=== PATIENT | female | born 1965 | race Caucasian/White ===

== ENCOUNTER → 2025-01-01 09:43 | Outpatient (REF) | payer BC, SELFPAY | LOC: RAD 09:43 | PROVIDERS: ATTENDING PHYSICIAN Physician Assistant; FAMILY PHYSICIAN Family Medicine | DX: E05.90 Thyrotoxicosis, unspecified without thyrotoxic crisis or storm (principal) | CPT/HCPCS: 76536 ==

== ENCOUNTER → 2025-02-25 16:33 | Outpatient (REF) | payer BC, SELFPAY ==
[2025-02-25 13:50] VITALS: BP 138/90; BP_SYST 95
== END ==
LOC: RADI 16:33
PROVIDERS: ATTENDING PHYSICIAN Physician Assistant
DX: E04.1 Nontoxic single thyroid nodule (principal)
CPT/HCPCS: 88173; 10005

== ENCOUNTER 2025-05-21 06:23 | Day surgery (SDC) | payer BC, SELFPAY ==
[2025-05-21 08:21] LABS: Glucose - Point of Care 95 mg/dl (70-99)
== END 2025-05-21 10:43 | disposition home or self-care (01) ==
LOC: GI 06:23
PROVIDERS: ATTENDING PHYSICIAN Internal Medicine; FAMILY PHYSICIAN Family Medicine
DX: Z12.11 Encounter for screening for malignant neoplasm of colon (principal); K57.30 Diverticulosis of large intestine without perforation or abscess without bleeding; K64.8 Other hemorrhoids; R12 Heartburn; K22.89 Other specified disease of esophagus; K31.7 Polyp of stomach and duodenum; K31.89 Other diseases of stomach and duodenum; D12.2 Benign neoplasm of ascending colon; D12.0 Benign neoplasm of cecum; K21.00 Gastro-esophageal reflux disease with esophagitis, without bleeding; D12.3 Benign neoplasm of transverse colon; K62.1 Rectal polyp; Z80.0 Family history of malignant neoplasm of digestive organs; Z86.0100 Personal history of colon polyps, unspecified
CPT/HCPCS: 43251; 45385; 45380; 43239; 82962; 88305; 88342

== ENCOUNTER → 2025-06-11 07:26 | Outpatient (REF) | payer BC, SELFPAY | LOC: HWRAD 07:26 | PROVIDERS: ATTENDING PHYSICIAN Internal Medicine; FAMILY PHYSICIAN Family Medicine | DX: R11.0 Nausea (principal); R10.13 Epigastric pain | CPT/HCPCS: 76700 ==

== ENCOUNTER → 2025-07-16 10:17 | Outpatient (REF) | payer BC, SELFPAY | LOC: RAD 10:17 | PROVIDERS: ATTENDING PHYSICIAN Physician Assistant; FAMILY PHYSICIAN Family Medicine | DX: E03.9 Hypothyroidism, unspecified (principal) | CPT/HCPCS: 76536 ==

== ENCOUNTER → 2025-09-23 09:22 | Outpatient (REF) | payer BC, SELFPAY ==
[2025-09-23 09:44] VITALS: BP 117/68; BP_SYST 83
== END ==
LOC: RADI 09:22
PROVIDERS: ATTENDING PHYSICIAN Physician Assistant; FAMILY PHYSICIAN Family Medicine
DX: E04.1 Nontoxic single thyroid nodule (principal)
CPT/HCPCS: 10005; 88173